=== PATIENT | male | born 1955 | race Caucasian/White ===

== ENCOUNTER → 2018-07-11 | Outpatient (CLI) | END | disposition home or self-care (01) ==

== ENCOUNTER → 2019-05-15 | Outpatient (CLI) | payer MEDICARE, OTHER ==
[~2019-05-15] MED LIST: IOHEXOL 100 ML ONE; LEVO750T25 PO; NITROGLYCERIN AEROSOL (4.9 GM) ONE; SOD CHLORIDE 0.9% 100 ML ONE; SODI15OR8 PO
== END | disposition home or self-care (01) ==
LOC: C/S 09:41
PROVIDERS: ATTEND Internal Medicine
DX: R94.39 Abnormal result of other cardiovascular function study (principal); R07.9 Chest pain, unspecified
CPT/HCPCS: 75571; 75574; Q9967